=== PATIENT | female | born 1955 | race Two or more races ===

== ENCOUNTER 2023-10-09 06:51 | Inpatient (IN) | payer OTHER ==
[~2023-10-09] VITALS: Ht 170.2 cm; Wt 111.1 kg
[2023-10-09] MEDS ORDERED: ALBUTEROL SULF 2.5 MG/0.5ML(0.5%) NEB SOLN HHN ONE (07:15)
[2023-10-09] MEDS ORDERED: IPRATROPIUM BROM 0.5 MG/2.5ML INH SOL HHN ONE (07:15)
[2023-10-09] MEDS ORDERED: methylPREDNISolone SOD SUCC 125 MG/2 ML VL IV ONE (07:15)
[2023-10-09 07:38] LABS: Basophils # (auto) 0 10 ^3/uL (0-0.2); Basophils % (auto) 0.3 % (0.0-2.0); Eosinophils # (auto) 0 10 ^3/uL (0-0.8); Eosinophils % (auto) 0.1 % (0.0-7.0); Hematocrit 50.3 % (36.0-46.0); Hemoglobin 16.5 g/dL (12.2-16.2); Lymphocytes # (auto) 0.5 10 ^3/uL (0.4-5.4); Lymphocytes % (auto) 4.8 % (10.0-50.0); Mean Corpuscular Hemoglobin 30.6 pg (28.0-32.0); Mean Corpuscular Hgb Conc. 32.7 g/dL (32.0-36.0); Mean Corpuscular Volume 93.3 fL (80.0-100.0); Monocytes # (auto) 0.6 10 ^3/uL (0-1.3); Monocytes % (auto) 5.5 % (0.0-12.0); Neutrophils % (auto) 89.3 % (37.0-80.0); Nucleated Red Blood Cells % 0.1 %; Red Blood Cells 5.39 10^6/uL (4.0-5.20); White Blood Cell 11.1 10^3/uL (4.4-10.8)
[2023-10-09] MEDS ORDERED: AZITHROMYCIN 500MG/ 250ML 250 ML IV ONE (08:30)
[2023-10-09 08:33] LABS: Alanine Aminotransferase 18 U/L (7-40); Albumin 4.7 g/dL (3.2-4.8); Alkaline Phosphatase 77 U/L (46-116); Anion Gap 7 (5-15); Aspartate Aminotransferase 18 U/L (13-40); BUN/Creatinine Ratio 12.6 (10.0-20.0); Blood Urea Nitrogen 14 mg/dL (9-23); Calcium 9.4 mg/dL (8.5-10.1); Carbon Dioxide 28 mmol/L (20-30); Chloride 104 mmol/L (98-107); Glucose 218 mg/dL (74-106); Sodium 139 mmol/L (136-145)
[2023-10-09 08:34] LABS: Bilirubin, Total 0.6 mg/dL (0.2-1.0); Total Protein 6.9 g/dL (5.7-8.2)
[2023-10-09 08:53] LABS: Magnesium 1.5 mg/dL (1.6-2.6)
[2023-10-09 09:11] LABS: COVID19 ANTIGEN SOFIA FIA NEGATIVE (NEGATIVE)
[2023-10-09 09:13] LABS: Rapid Influenza A Positive (Negative); Rapid Influenza B Negative (Negative)
[2023-10-09] MEDS ORDERED: OSELTAMIVIR 30 MG CAP PO ONE (09:30)
[2023-10-09] MEDS ORDERED: cloNIDine HCL 0.1 MG TAB PO PRN (12:00)
[2023-10-09] MEDS ORDERED: MORPHINE SULFATE INJ 2 MG/ml SYRG IV PRN (12:00)
[2023-10-09] MEDS ORDERED: DEXTROSE (50%) 50ML SYRG IV PRN (12:00)
[2023-10-09] MEDS ORDERED: NITROGLYCERIN 0.4 MG SL TAB SL PRN (12:00)
[2023-10-09] MEDS: IPRATROPIUM BROM 0.5 MG/2.5ML INH SOL NEB SCH ×2 (12:00→18:32)
[2023-10-09] MEDS: ALBUTEROL SULF 2.5 MG/0.5ML(0.5%) NEB SOLN NEB SCH ×2 (12:00→18:32)
[2023-10-09] MEDS ORDERED: ONDANSETRON HCL 4 MG/2 ML VIAL IV PRN (12:00)
[2023-10-09] MEDS: SODIUM CHLORIDE 0.9% 1,000 ML IV SCH (12:00)
[2023-10-09] MEDS ORDERED: HYDROcodone-ACET 5/325MG TAB PO PRN (12:00)
[2023-10-09 12:35] LABS: LDL Cholesterol 105 mg/dL (< 100); Triglycerides 78 mg/dL (< 150)
[2023-10-09 12:37] LABS: Cholesterol 166 mg/dL (< 200); HDL Cholesterol 50 mg/dL (40-59)
[2023-10-09] MEDS: methylPREDNISolone SOD SUCC 40 MG/ML VL IV SCH ×2 (14:06→22:16)
[2023-10-09 15:09] VITALS: BP 100/57; PULSE 103; RESP 17; TEMP 99.9; O2SAT 97
[2023-10-09] MEDS: InsuLIN REG 1unit/0.01ml Soln (100units/ml) SC SCH (17:00)
[2023-10-09] MEDS: ACCU-CHEK COMFORT CURVE STRIP VI SCH ×2 (17:18→22:10)
[2023-10-09] MEDS ORDERED: DOXYCYCLINE 100MG/250ML 250 ML IV SCH (17:45)
[2023-10-09 18:32] VITALS: PULSE 85; RESP 18; O2SAT 94
[2023-10-09] MEDS: BUDESONIDE (INHALATION) 0.5 MG/2 ML NEB NEB SCH (18:32)
[2023-10-09 18:42] VITALS: PULSE 91; RESP 18; O2SAT 98
[2023-10-09 19:33] VITALS: PULSE 85; RESP 18; O2SAT 94
[2023-10-09 20:15] VITALS: PULSE 117; RESP 24; O2SAT 96
[2023-10-09] MEDS: DOXYCYCLINE 100MG/250ML 250 ML IV SCH (21:32)
[2023-10-09] MEDS ORDERED: InsuLIN REG 1unit/0.01ml Soln (100units/ml) SC SCH (22:00)
[2023-10-09] MEDS: OSELTAMIVIR 30 MG CAP PO SCH (22:16)
[2023-10-09 23:09] VITALS: PULSE 82; RESP 20; O2SAT 95
[2023-10-09] MEDS ORDERED: HYDR25TA5 PO (23:42)
[2023-10-09] MEDS ORDERED: METF-370 PO (23:42)
[2023-10-09] MEDS ORDERED: GLIP5TAB12 PO (23:42)
[2023-10-09] MEDS ORDERED: CITA-73 PO (23:42)
[2023-10-09] MEDS ORDERED: MONT-8 PO (23:42)
[2023-10-09] MEDS ORDERED: METO-289 PO (23:42)
[2023-10-09] MEDS ORDERED: ALBUAER3 IN (23:42)
[2023-10-09] MEDS ORDERED: FLUT100I IN (23:42)
[2023-10-09] MEDS ORDERED: ASPI81CH59 PO (23:42)
[2023-10-09] MEDS ORDERED: ATOR20TA50 PO (23:42)
[2023-10-09] MEDS ORDERED: BENA-36 PO (23:42)
[2023-10-10] VITALS (13 sets, daily range): BP systolic 92–123; BP diastolic 40–78; PULSE 56–125; RESP 16–19; TEMP 97.7–98.9; O2SAT 95–100
[2023-10-10] MEDS ORDERED: guaiFENesin-DM 100/10mg/5ml SYR PO PRN (03:15)
[2023-10-10] MEDS ORDERED: ENOXAPARIN SOD 100 MG/1 ML SYRINGE SC ONE (04:00)
[2023-10-10] MEDS ORDERED: METOPROLOL TARTRATE 50 MG TAB PO ONE (04:15)
[2023-10-10] MEDS: SODIUM CHLORIDE 0.9% 1,000 ML IV SCH ×2 (04:27→05:27)
[2023-10-10] MEDS: methylPREDNISolone SOD SUCC 40 MG/ML VL IV SCH ×3 (05:55→21:57)
[2023-10-10] MEDS: InsuLIN REG 1unit/0.01ml Soln (100units/ml) SC SCH (06:20)
[2023-10-10] MEDS: ACCU-CHEK COMFORT CURVE STRIP VI SCH ×3 (06:20→17:58)
[2023-10-10] MEDS: ALBUTEROL SULF 2.5 MG/0.5ML(0.5%) NEB SOLN NEB SCH ×3 (06:23→18:34)
[2023-10-10] MEDS: IPRATROPIUM BROM 0.5 MG/2.5ML INH SOL NEB SCH ×3 (06:23→18:34)
[2023-10-10 08:00] LABS: Chloride 105 mmol/L (98-107); Potassium 3.8 mmol/L (3.5-5.1); Sodium 138 mmol/L (136-145)
[2023-10-10 08:01] LABS: Anion Gap 7 (5-15); Carbon Dioxide 26 mmol/L (20-30)
[2023-10-10 08:06] LABS: BUN/Creatinine Ratio 15.6 (10.0-20.0); Blood Urea Nitrogen 15 mg/dL (9-23); Glucose 158 mg/dL (74-106)
[2023-10-10] MEDS: DOXYCYCLINE 100MG/250ML 250 ML IV SCH (08:11)
[2023-10-10 09:03] LABS: Magnesium 1.7 mg/dL (1.6-2.6)
[2023-10-10] MEDS: METOPROLOL TARTRATE 50 MG TAB PO SCH ×2 (09:15→22:09)
[2023-10-10] MEDS: FAMOTIDINE 20 MG TAB PO SCH (09:16)
[2023-10-10] MEDS: OSELTAMIVIR 30 MG CAP PO SCH (09:16)
[2023-10-10] MEDS ORDERED: metFORMIN HYDROCHLORIDE 500 MG TAB PO ONE (09:30)
[2023-10-10] MEDS ORDERED: glipiZIDE 5 MG TAB PO ONE (09:30)
[2023-10-10] MEDS ORDERED: DEXTROSE (50%) 50ML SYRG IV PRN (09:30)
[2023-10-10] MEDS ORDERED: ACCU-CHEK COMFORT CURVE STRIP VI SCH (10:00)
[2023-10-10] MEDS ORDERED: ENOXAPARIN SOD 40 MG/0.4 ML SYRINGE SC SCH (10:00)
[2023-10-10] MEDS ORDERED: AZITHROMYCIN 250 MG TAB PO SCH (10:00)
[2023-10-10] MEDS: BUDESONIDE (INHALATION) 0.5 MG/2 ML NEB NEB SCH ×2 (10:46→18:34)
[2023-10-10] MEDS: metFORMIN HYDROCHLORIDE 500 MG TAB PO SCH (18:02)
[2023-10-10] MEDS: OSELTAMIVIR 75 MG CAP PO SCH (21:57)
[2023-10-10] MEDS: DOXYCYCLINE 100 MG TAB/CAP PO SCH (21:57)
[2023-10-11] VITALS (11 sets, daily range): BP systolic 97–126; BP diastolic 60–78; PULSE 51–75; RESP 17–18; TEMP 98–98.1; O2SAT 94–99
[2023-10-11] MEDS: methylPREDNISolone SOD SUCC 40 MG/ML VL IV SCH ×2 (05:57→14:21)
[2023-10-11] MEDS: BUDESONIDE (INHALATION) 0.5 MG/2 ML NEB NEB SCH (06:47)
[2023-10-11] MEDS: ALBUTEROL SULF 2.5 MG/0.5ML(0.5%) NEB SOLN NEB SCH ×2 (06:47→12:05)
[2023-10-11] MEDS: IPRATROPIUM BROM 0.5 MG/2.5ML INH SOL NEB SCH ×2 (06:47→12:05)
[2023-10-11] MEDS ORDERED: glipiZIDE 5 MG TAB PO SCH (07:00)
[2023-10-11] MEDS: DOXYCYCLINE 100 MG TAB/CAP PO SCH (09:18)
[2023-10-11] MEDS: OSELTAMIVIR 75 MG CAP PO SCH (09:18)
[2023-10-11] MEDS: FAMOTIDINE 20 MG TAB PO SCH (09:19)
[2023-10-11] MEDS: ACCU-CHEK COMFORT CURVE STRIP VI SCH ×2 (09:19→12:04)
[2023-10-11] MEDS: metFORMIN HYDROCHLORIDE 500 MG TAB PO SCH (09:19)
[2023-10-11] MEDS: METOPROLOL TARTRATE 50 MG TAB PO SCH (10:00)
[2023-10-11] MEDS ORDERED: ENOXAPARIN SOD 40 MG/0.4 ML SYRINGE SC SCH (10:00)
[2023-10-11] MEDS ORDERED: POTASSIUM CHL 20 Meq TABLET PO ONE (12:15)
[2023-10-11] MEDS ORDERED: MAGNESIUM SULFATE 1GM/100ML 100 ML IV ONE (12:15)
[2023-10-11] MEDS ORDERED: IPRA0.00 IN (15:24)
[2023-10-11] MEDS ORDERED: TAMIFLU PO (15:24)
[2023-10-11] MEDS ORDERED: APIX2.5T PO (15:24)
[2023-10-11] MEDS ORDERED: PRED20TA2 PO (15:24)
[2023-10-11] MEDS ORDERED: APIXABAN 2.5 MG TAB PO SCH (22:00)
[2023-10-11] MEDS ORDERED: METOPROLOL TARTRATE 50 MG TAB PO SCH (22:00)
[2023-10-12] MEDS ORDERED: AMIODARONE HCL 200 MG TAB PO SCH (10:00)
== END 2023-10-11 17:51 | disposition home or self-care (01) | DRG 193 ==
LOC: ER 06:51 → TELE 12:04 → TELE-EAST 23:22
PROVIDERS: ADMIT Hospitalist; ATTEND Hospitalist
DX: J10.1 Influenza due to other identified influenza virus with other respiratory manifestations (principal); J96.01 Acute respiratory failure with hypoxia; I47.10 Supraventricular tachycardia, unspecified; I48.92 Unspecified atrial flutter; J98.11 Atelectasis; J44.1 Chronic obstructive pulmonary disease with (acute) exacerbation; J44.0 Chronic obstructive pulmonary disease with (acute) lower respiratory infection; E11.9 Type 2 diabetes mellitus without complications; E66.01 Morbid (severe) obesity due to excess calories; F17.210 Nicotine dependence, cigarettes, uncomplicated; E78.5 Hyperlipidemia, unspecified; I10 Essential (primary) hypertension; R00.1 Bradycardia, unspecified; Z20.822 Contact with and (suspected) exposure to COVID-19; J44.89 Other specified chronic obstructive pulmonary disease; Z68.38 Body mass index [BMI] 38.0-38.9, adult; Z80.0 Family history of malignant neoplasm of digestive organs; Z82.49 Family history of ischemic heart disease and other diseases of the circulatory system; Z83.3 Family history of diabetes mellitus; Z88.0 Allergy status to penicillin; Z90.711 Acquired absence of uterus with remaining cervical stump
CPT/HCPCS: 36415; 71045; 80048; 80053; 80061; 82962; 83036; 83605; 83735; 83880; 84484; 85025; 85379; 87040; 87426; 87804; 93005; 93306; 94640; 96361; 96365; 96375; 97163; 99291; G0378; G9035; J2405; J3490